=== PATIENT | female | born 1970 | race Caucasian/White ===

== ENCOUNTER 2022-03-31 19:20 | Emergency (ER) | payer OTHER ==
[2022-03-31 19:32] VITALS: BP 127/78; PULSE 77; RESP 20; TEMP 98.1; BMI 24.1
[2022-03-31] MEDS ORDERED: ACETAMINOPHEN 325 MG TABLET (FP) PO ONE (19:46)
[2022-03-31] MEDS ORDERED: diazePAM 2 MG TABLET PO ONE (19:46)
[2022-03-31] MEDS ORDERED: LIDOCAINE 5% TOPICAL PATCH TP ONE (19:46)
[2022-03-31] MEDS ORDERED: LIDOCAINE 5% TOPICAL PATCH ONE (19:52)
[2022-03-31] MEDS ORDERED: diazePAM 2 MG TABLET ONE (19:52)
[2022-03-31] MEDS ORDERED: ACETAMINOPHEN 325 MG TABLET (FP) ONE (19:52)
[2022-04-01] MEDS ORDERED: LIDOCAINE PATCH REMOVAL MC SCH (08:00)
== END 2022-03-31 21:05 | disposition home or self-care (01) ==
LOC: JER 19:20 → JERFT 19:20
DX: M25.511 Pain in right shoulder (principal)
CPT/HCPCS: 73030-TC-RT-FY; 99284-25

== ENCOUNTER 2022-04-01 05:07 | Emergency (ER) | payer OTHER ==
[2022-04-01 05:27] VITALS: BP 124/82; PULSE 101; RESP 19; TEMP 98.1; BMI 24.1
[2022-04-01] MEDS ORDERED: KETOROLAC TROMETHAMINE 15 MG/ML VIAL IVPUSH ONE (05:44)
[2022-04-01] MEDS ORDERED: GABAPENTIN 100 MG CAPSULE PO ONE (05:45)
[2022-04-01] MEDS ORDERED: GABAPENTIN 100 MG CAPSULE ONE (05:47)
[2022-04-01] MEDS ORDERED: KETOROLAC TROMETHAMINE 15 MG/ML VIAL ONE (05:48)
[2022-04-01 06:46] LABS: BASO % 0.4 % (0-2.0); EOS % 2.2 % (0-4.5); HEMATOCRIT 37.1 % (32.4-45.2); HEMOGLOBIN 12.3 GM/dL (10.7-15.3); LYMPH % 27.5 % (8-40); MCH 29.7 pg (25.7-33.7); MCHC 33.3 g/dl (32.0-36.0); MEAN CELL VOLUME 89.2 fl (80-96); MEAN PLT VOLUME 7.9 fl (7.5-11.1); MONO % 7.5 % (3.8-10.2); NEUT % 62.4 % (42.8-82.8); PLATELET COUNT 289 10^3/uL (134-434); RBC 4.16 M/mm3 (3.60-5.2); RDW 13.9 % (11.6-15.6)
[2022-04-01 07:01] LABS: INR 1.03 (0.83-1.09); PROTHROMBIN TIME (PATIENT) 11.9 SEC (9.7-13.0)
[2022-04-01 07:03] LABS: ACTIVATED PTT 28.4 SECONDS (25.2-36.5)
[2022-04-01 07:05] LABS: ALBUMIN 3.6 g/dl (3.4-5.0); BLOOD UREA NITROGEN 12.1 mg/dL (7-18)
[2022-04-01 07:08] LABS: CREATININE 0.7 mg/dL (0.55-1.3)
[2022-04-01 07:09] LABS: BILIRUBIN,TOTAL 0.4 mg/dL (0.2-1)
[2022-04-01 07:10] LABS: TOT PROT 7.5 g/dl (6.4-8.2)
[2022-04-01] MEDS ORDERED: morphine CARPU-JECT 2 MG/1 ML DISP.SYRIN IVPUSH ONE (07:25)
== END 2022-04-01 10:13 | disposition home or self-care (01) ==
LOC: JER 05:07
PROC: 3E0333Z Introduction of Anti-inflammatory into Peripheral Vein, Percutaneous Approach (ICD-10-PCS; principal; 2022-04-01)
PROC: 3E033NZ Introduction of Analgesics, Hypnotics, Sedatives into Peripheral Vein, Percutaneous Approach (ICD-10-PCS; 2022-04-01)
DX: M79.601 Pain in right arm (principal)
CPT/HCPCS: 36415; 71046-TC-FY; 72125-TC; 80053; 84484; 85025; 85610; 85730; 93005; 93010; 99285-25

== ENCOUNTER 2022-04-05 15:10 | Observation (INO) | payer OTHER ==
[2022-04-05] MEDS ORDERED: LIDOCAINE 5% TOPICAL PATCH TP ONE (15:52)
[2022-04-05] MEDS ORDERED: KETOROLAC TROMETHAMINE 15 MG/ML VIAL IM ONE (15:52)
[2022-04-05] MEDS ORDERED: ACETAMINOPHEN 500 MG TABLET (FP) PO ONE (15:52)
[2022-04-05] MEDS ORDERED: LIDOCAINE 5% TOPICAL PATCH ONE (15:57)
[2022-04-05] MEDS ORDERED: KETOROLAC TROMETHAMINE 15 MG/ML VIAL ONE (15:57)
[2022-04-05] MEDS ORDERED: ACETAMINOPHEN 325 MG TABLET (FP) ONE (15:57)
[2022-04-05] MEDS ORDERED: diazePAM 5 MG TABLET PO ONE ×2 (16:43→22:11)
[2022-04-05] MEDS ORDERED: diazePAM 5 MG TABLET ONE ×2 (17:29→22:18)
[2022-04-05 20:12] LABS: BASO % 0.5 % (0-2.0); EOS % 0.1 % (0-4.5); HEMOGLOBIN 12.2 GM/dL (10.7-15.3); LYMPH % 30.9 % (8-40); MCH 30.6 pg (25.7-33.7); MCHC 33.9 g/dl (32.0-36.0); MEAN CELL VOLUME 90.2 fl (80-96); MEAN PLT VOLUME 7.9 fl (7.5-11.1); MONO % 5.3 % (3.8-10.2); NEUT % 63.2 % (42.8-82.8); PLATELET COUNT 358 10^3/uL (134-434); RBC 3.99 M/mm3 (3.60-5.2); RDW 13.6 % (11.6-15.6); WHITE BLOOD COUNT 7.9 K/mm3 (4.0-10.0)
[2022-04-05 20:32] LABS: CALCIUM 9.6 mg/dL (8.5-10.1)
[2022-04-05 20:33] LABS: ALBUMIN 3.8 g/dl (3.4-5.0); BLOOD UREA NITROGEN 9.6 mg/dL (7-18)
[2022-04-05 20:36] LABS: CREATININE 0.6 mg/dL (0.55-1.3)
[2022-04-05 20:37] LABS: BILIRUBIN,TOTAL 0.2 mg/dL (0.2-1)
[2022-04-05 20:38] LABS: TOT PROT 7.5 g/dl (6.4-8.2)
[2022-04-05] MEDS ORDERED: oxyCODONE HCL 5 MG TABLET PO ONE (21:25)
[2022-04-05] MEDS ORDERED: oxyCODONE HCL 5 MG TABLET ONE (21:30)
[2022-04-05] MEDS ORDERED: KETOROLAC TROMETHAMINE 30 MG/1 ML VIAL IVPUSH ONE (22:10)
[2022-04-05] MEDS ORDERED: LACTATED RINGERS SOLUTION 1000 ML INFUS.BAG IV ONE (22:11)
[2022-04-05] MEDS ORDERED: KETOROLAC TROMETHAMINE 30 MG/1 ML VIAL ONE (22:19)
[2022-04-05] MEDS: LIDOCAINE PATCH REMOVAL MC SCH (22:30)
[2022-04-06 01:07] VITALS: BMI 24.0
[2022-04-06] MEDS: oxyCODONE HCL 5 MG TABLET PO PRN ×3 (02:36→21:34)
[2022-04-06 08:09] LABS: URINE APPEARANCE CLEAR; URINE BILIRUBIN NEGATIVE (NEGATIVE); URINE COLOR YELLOW; URINE GLUCOSE (UA) NEGATIVE (NEGATIVE); URINE KETONE NEGATIVE (NEGATIVE); URINE LEUK ESTERASE NEGATIVE (NEGATIVE); URINE NITRITE NEGATIVE (NEGATIVE); URINE PROTEIN NEGATIVE (NEGATIVE); URINE UROBILINOGEN 0.2 mg/dL (0.2-1.0)
[2022-04-06 09:10] LABS: BASO % 0.7 % (0-2.0); HEMATOCRIT 35.3 % (32.4-45.2); HEMOGLOBIN 11.9 GM/dL (10.7-15.3); MCH 30.3 pg (25.7-33.7); MCHC 33.8 g/dl (32.0-36.0); MEAN CELL VOLUME 89.7 fl (80-96); MEAN PLT VOLUME 7.9 fl (7.5-11.1); MONO % 9.1 % (3.8-10.2); NEUT % 44.2 % (42.8-82.8); PLATELET COUNT 340 10^3/uL (134-434); RBC 3.93 M/mm3 (3.60-5.2); RDW 13.5 % (11.6-15.6); WHITE BLOOD COUNT 7.5 K/mm3 (4.0-10.0)
[2022-04-06 09:35] LABS: ALBUMIN 3.4 g/dl (3.4-5.0); CALCIUM 9.1 mg/dL (8.5-10.1)
[2022-04-06 09:36] LABS: BLOOD UREA NITROGEN 13.5 mg/dL (7-18); CHOLESTEROL 211 mg/dL (50-200)
[2022-04-06 09:37] LABS: TRIGLYCERIDES 142 mg/dL (0-150)
[2022-04-06 09:38] LABS: CREATININE 0.6 mg/dL (0.55-1.3); LDL CHOLESTEROL (ONLY SJRH) 125 mg/dL (5-100); PHOSPHOROUS 3.9 mg/dL (2.5-4.9)
[2022-04-06 09:40] LABS: BILIRUBIN,TOTAL 0.8 mg/dL (0.2-1); HDL CHOLESTEROL 65 mg/dL (40-60)
[2022-04-06] MEDS: ENOXAPARIN NA (PORCINE) 40 MG/0.4 ML DISP.SYRIN SQ SCH (10:07)
[2022-04-06] MEDS: CYCLOBENZAPRINE HCL 5 MG TABLET PO SCH ×3 (10:07→21:34)
[2022-04-06] MEDS ORDERED: oxyCODONE HCL 5 MG TABLET PO PRN (15:20)
[2022-04-06] MEDS: KETOROLAC TROMETHAMINE 30 MG/1 ML VIAL IVPUSH SCH ×2 (15:37→17:58)
[2022-04-06] MEDS ORDERED: DEXAMETHASONE SOD PHOSPHATE 10 MG/1 ML VIAL IVPUSH ONE (16:40)
[2022-04-06] MEDS ORDERED: DOCUSATE SODIUM 100 MG CAPSULE (FP) PO SCH (22:00)
[2022-04-06] MEDS: LIDOCAINE PATCH REMOVAL MC SCH (22:36)
[2022-04-07] MEDS: KETOROLAC TROMETHAMINE 30 MG/1 ML VIAL IVPUSH SCH (02:18)
[2022-04-07] MEDS: CYCLOBENZAPRINE HCL 5 MG TABLET PO SCH ×2 (05:14→16:51)
[2022-04-07] MEDS: ENOXAPARIN NA (PORCINE) 40 MG/0.4 ML DISP.SYRIN SQ SCH (08:59)
[2022-04-07] MEDS: oxyCODONE HCL 5 MG TABLET PO PRN (10:21)
[2022-04-07] MEDS ORDERED: ACETAMINOPHEN 500 MG TABLET (FP) PO SCH (13:00)
[2022-04-07] MEDS ORDERED: GABAPENTIN 100 MG CAPSULE PO SCH (14:00)
[2022-04-07 15:35] VITALS: BP 101/73; PULSE 86; RESP 17; TEMP 98.1
== END 2022-04-07 16:14 | disposition home or self-care (01) ==
LOC: JER 15:10 → JERBED 20:43 → J5S 04-06 00:03
PROVIDERS: ADMIT Internal Medicine; ATTEND Nurse Practitioner Acute Care
PROC: 3E033GC Introduction of Other Therapeutic Substance into Peripheral Vein, Percutaneous Approach (ICD-10-PCS; principal; 2022-04-05)
PROC: 3E023GC Introduction of Other Therapeutic Substance into Muscle, Percutaneous Approach (ICD-10-PCS; 2022-04-05)
PROC: 3E033GC Introduction of Other Therapeutic Substance into Peripheral Vein, Percutaneous Approach (ICD-10-PCS; 2022-04-05)
PROC: 3E0333Z Introduction of Anti-inflammatory into Peripheral Vein, Percutaneous Approach (ICD-10-PCS; 2022-04-05)
PROC: 3E0337Z Introduction of Electrolytic and Water Balance Substance into Peripheral Vein, Percutaneous Approach (ICD-10-PCS; 2022-04-05)
PROC: 3E033NZ Introduction of Analgesics, Hypnotics, Sedatives into Peripheral Vein, Percutaneous Approach (ICD-10-PCS; 2022-04-05)
DX: M54.9 Dorsalgia, unspecified (principal); M25.511 Pain in right shoulder; Z29.8 Encounter for other specified prophylactic measures
CPT/HCPCS: 36415; 71045-TC-FY; 80053; 80061; 81003; 83036; 83735; 84100; 85025; 85379; 86038; 86431; 93005; 93010; 96361; 96372; 96374; 96375; 97162-GP; 99285-25; C9803-CS; G0378; J1100; U0003; U0005